=== PATIENT | male | born 1955 | race Caucasian/White ===

== ENCOUNTER 2022-01-21 09:51 | Day surgery (SDC) | payer OTHER ==
[2022-01-17 15:30] VITALS: BMI 19.1
[2022-01-21 11:44] VITALS: TEMP 97.8
[2022-01-21 12:07] VITALS: BP 93/63; PULSE 71
== END 2022-01-21 12:13 | disposition home or self-care (01) ==
LOC: FASU-ENDO 09:51
PROVIDERS: ATTEND Internal Medicine Gastroenterology
PROC: 0DB68ZX Excision of Stomach, Via Natural or Artificial Opening Endoscopic, Diagnostic (ICD-10-PCS; 2022-01-21)
PROC: 0DB48ZX Excision of Esophagogastric Junction, Via Natural or Artificial Opening Endoscopic, Diagnostic (ICD-10-PCS; 2022-01-21)
PROC: 0DB98ZX Excision of Duodenum, Via Natural or Artificial Opening Endoscopic, Diagnostic (ICD-10-PCS; principal; 2022-01-21 11:17)
DX: K29.50 Unspecified chronic gastritis without bleeding (principal); K20.90 Esophagitis, unspecified without bleeding; B96.81 Helicobacter pylori [H. pylori] as the cause of diseases classified elsewhere; R10.13 Epigastric pain
CPT/HCPCS: 88305-TC; 88342-TC